=== PATIENT | male | born 2000 ===

== ENCOUNTER 2022-01-14 05:20 | Day surgery (SDC) | payer OTHER | END 2022-01-14 09:25 | disposition home or self-care (01) | LOC: AMB-ENDOS 05:20 | PROVIDERS: ATTEND Surgery | DX: K44.9 Diaphragmatic hernia without obstruction or gangrene (principal); E66.01 Morbid (severe) obesity due to excess calories; J45.909 Unspecified asthma, uncomplicated; E78.2 Mixed hyperlipidemia; E55.9 Vitamin D deficiency, unspecified; G47.33 Obstructive sleep apnea (adult) (pediatric); K30 Functional dyspepsia ==